=== PATIENT | female | born 1985 | race Caucasian/White ===

== ENCOUNTER → 2016-10-10 | Outpatient (CLI) | payer OTHER ==
[~2016-10-10] MED LIST: AMOXIL500 MG PO; ATOXIMETIN-B1 CAP PO; AUGMENTIN 875875 MG PO; CELEXA10 MG PO; CYCLOBENZAPRINE10 MG PO; DONNATAL1 TAB PO; FLONASE 0.05% 121 EA NAS; LOPRESSOR25 MG PO; MEDROL DOSEPAK4 MG PO; METFORMIN ER500 MG PO; NOVAPLUS V0.09 MG/Ac IH; PEPCID20 MG PO; PREVACID30 M1 PO; TYLENOL W/CODEI1 TA2 PO; ULTRAM50 MG PO; ZYRTEC10 M1 PO; ZYRTEC10 M2 PO
[2016-10-10 09:07] LABS: HEMATOCRIT 39.3 % (37.0-47.0); HEMOGLOBIN 13.9 g/dl (12.0-16.0); MEAN CELL VOLUME 81.7 fl (81.0-99.0); MEAN CORPUSCULAR HGB 28.9 pg (27.0-31.0); MEAN CORPUSCULAR HGB CONC 35.4 g/dl (33.0-37.0); MEAN PLATELET VOLUME 10.4 fl (9.6-12.3); RED BLOOD COUNT 4.81 10*6/uL (4.10-5.10); WHITE BLOOD COUNT 7.9 10*3/uL (4.8-10.8)
[2016-10-10 09:37] LABS: HEMOGLOBIN A1c 7.8 % (4.8-5.6)
[2016-10-10 09:55] LABS: ALBUMIN 3.5 gm/dl (3.1-4.5); BILIRUBIN, TOTAL 0.3 mg/dl (0.2-1.0); BUN 10 mg/dl (7-24); CARBON DIOXIDE 25 mmol/L (21-32); CHLORIDE 100 mmol/L (98-107); EST GLOM FILT AFRICAN AMERICAN > 60 ml/min; GLUCOSE 240 mg/dL (65-99); POTASSIUM 4.1 mmol/L (3.5-5.1); SGOT/AST 15 IU/L (3-35); SODIUM 136 mmol/L (136-145); TOTAL PROTEIN 7.1 gm/dL (6.4-8.2)
[2016-10-10 10:03] LABS: CHOLESTEROL 201 mg/dL (<200); CPK 105 U/L (26-192); HDL CHOLESTEROL 25 mg/dl (40-60)
[2016-10-10 10:04] LABS: TRIGLYCERIDES 1604 mg/dl (<150)
[2016-10-10 10:25] LABS: ALKALINE PHOSPHATASE 51 U/L (45-117); SGPT/ALT 32 U/L (12-78)
[2016-10-10 12:54] LABS: VITAMIN D, 25-HYDROXY 23.7 ng/mL (30-100)
== END | disposition home or self-care (01) ==
LOC: LAB 08:49
PROVIDERS: Family Medicine
DX: E11.9 Type 2 diabetes mellitus without complications (principal); E78.00 Pure hypercholesterolemia, unspecified; E55.9 Vitamin D deficiency, unspecified; R53.83 Other fatigue

== ENCOUNTER → 2016-10-16 | Outpatient (CLI) | payer OTHER ==
[2016-10-16 11:08] LABS: C-REACTIVE PROTEIN 1.85 MG/DL (0-0.3); FREE T4 1.12 ng/dl (0.76-1.46); THYROID STIM HORMONE (HS) 1.02 uIU/ml (0.358-4.75)
[2016-10-17 08:11] LABS: RHEUMATOID ARTHRITIS FACTOR <10.0 IU/mL (0.0-13.9)
[2016-10-17 13:04] LABS: LYME AB/TOTAL IMMUNOGLOBULINS <0.91 ISR (0.00-0.90)
[2016-10-22 10:04] LABS: HLA-B27 ANTIGEN Negative (.)
== END | disposition home or self-care (01) ==
LOC: LAB 09:52
PROVIDERS: Family Medicine
DX: Z11.2 Encounter for screening for other bacterial diseases (principal); E11.9 Type 2 diabetes mellitus without complications; W57.XXXA Bitten or stung by nonvenomous insect and other nonvenomous arthropods, initial encounter; M25.50 Pain in unspecified joint; M54.9 Dorsalgia, unspecified; M79.1 Myalgia; R53.83 Other fatigue